=== PATIENT | male | born 1995 | race Caucasian/White ===

== ENCOUNTER → 2018-01-17 | Outpatient (CLI) | payer OTHER ==
--- NOTE | 2018-01-17 16:14 | CPEEG ---
DATE OF STUDY: 01/17/2018 INTERPRETATION: Normal EEG during wakefulness and partial sleep. There were no potentially epilepto genic abnormalities present in the recording. REPORT: This EEG contains 10 Hz alpha activity to the posterior head regions. There was no abnormal activation at rest, during photic stimulation, or hyperventilation. The patient intermittently enoch me drowsy and fell into light sleep during the recording. There was no abnormal activation during dr owsiness, light sleep, or during times of arousal. /[id number]/MODL
== END ==
LOC: FCPNEURO 13:55
PROVIDERS: ATTEND Psychiatry & Neurology Neurology
DX: R40.4 Transient alteration of awareness (principal)